=== PATIENT | female | born 1995 | race Caucasian/White ===

== ENCOUNTER 2025-08-15 08:47 | Outpatient (CLI) | payer MEDICAID ==
[2025-08-15 09:24] LABS: Hematocrit 34.0 % (36.0-46.0); Hemoglobin 11.3 g/dL (12.2-16.2); Mean Corpuscular Hemoglobin 28.1 pg (28.0-32.0); Mean Corpuscular Volume 84.2 fL (80.0-100.0); Nucleated Red Blood Cells % 0.0 %
[2025-08-15 10:06] LABS: Beta HCG, Quantitative 0.1 mIU/mL (1.5-4.2)
[2025-08-15 10:11] LABS: Thyroid Stimulating Hormone 0.89 uIU/mL (0.55-4.78)
[2025-08-15 11:26] LABS: Free T4 (Free Thyroxine) 1.16 ng/dL (0.89-1.76)
[2025-08-15 11:38] LABS: Alanine Aminotransferase 27 U/L (7-40); Albumin 4.6 g/dL (3.2-4.8); Alkaline Phosphatase 78 U/L (46-116); Anion Gap 11 (5-15); BUN/Creatinine Ratio 9.7 (10.0-20.0); Calcium 9.5 mg/dL (8.7-10.4); Carbon Dioxide 24 mmol/L (20-31); Chloride 105 mmol/L (98-107); Glucose 94 mg/dL (74-106); Potassium 4.1 mmol/L (3.5-5.1); Sodium 140 mmol/L (136-145); Total Protein 7.6 g/dL (5.7-8.2)
[2025-08-15 11:39] LABS: Bilirubin, Total 0.5 mg/dL (0.2-1.0); Blood Urea Nitrogen 6 mg/dL (9-23)
[2025-08-15 20:54] LABS: Follicle Stimulating Hormone 9.32 IU/L (SEE BELOW)
== END 2025-08-15 17:00 | disposition home or self-care (01) ==
LOC: LAB 08:47
PROVIDERS: ATTEND Obstetrics & Gynecology
DX: N93.9 Abnormal uterine and vaginal bleeding, unspecified (principal)
CPT/HCPCS: 36415; 80053; 82626; 82670; 83001; 83002; 83036; 83525; 84146; 84270; 84402; 84403; 84439; 84443; 84702; 85025